=== PATIENT | female | born 1985 | race Caucasian/White ===

== ENCOUNTER 2019-11-30 20:53 | Emergency (ER) | payer BC, SELFPAY ==
--- NOTE | ~2019-11-30 | CT_ITS ---
EXAMINATION: CT abdomen pelvis w con DATE: 11/30/2019 23:46 INDICATION: Lower abdominal pain. Nausea. Diarrhea. TECHNIQUE: Computed tomography (CT) of the abdomen and pelvis was performed with 100 cc Omnipaque 350 intravenous contrast. Automated exposure control and iterative reconstruction technique were employe d. Exam dose: 1676.85 mGy-cm total exam DLP. COMPARISON: 08/31/2006 CT abdomen. FINDINGS: The lung bases are clear. Heart size is within upper limits of normal. No pericardial or pl eural effusion. Morbid obesity limits soft tissue and organ detail. The liver, spleen, pancreas, and adrenal glands and kidneys are unremarkable. No urinary tract calcul us or hydroureteronephrosis. There is an approximately 5 x 5.4 cm left ovarian hypodense lesion. Consider further evaluation with pelvic ultrasound examination. The uterus, adnexal areas and urinary bladder otherwise appear unremar kable. No bowel obstruction or intraperitoneal free air is evident. Diffuse idiopathic skeletal hyperostosis of the thoracic spine. There is degenerative disc disease an d lumbar area, particularly at L2-3 and L3-4. There is mild retrolisthesis at L4-5. IMPRESSION: 5 x 5.4 cm nonspecific left ovarian hypodense lesion; consider pelvic ultrasound examina tion for further evaluation. Dr. Coffey telephoned ER physician Dr. Galicia on 12/01/2019 at 0858 hours with the report of the nonspe cific left ovarian hypodense 5.4 cm lesion and recommendation for further evaluation by pelvic ultras ound examination. Reviewed, dictated and finalized at [facility]. Reviewed, dictated and finalized at [facility]. IMPRESSION: 5 x 5.4 cm nonspecific left ovarian hypodense lesion; consider pel rg ultrasound examination for further evaluation. Dr. Coffey telephoned ER physician Dr. Galicia on 12/01/2019 at 0858 hours with th e report of the nonspecific left ovarian hypodense 5.4 cm lesion and recommenda tion for further evaluation by pelvic ultrasound examination.
[2019-11-30 20:56] VITALS: BP 195/88; PULSE 92; RESP 20; TEMP 36.6; O2SAT 98
[2019-11-30 21:22] LABS: Basophils Percent Auto 0.6 % (0.2-1.2); Eosinophils Absolute Auto 0.1 K/mm3 (0-0.3); Eosinophils Percent Auto 1.4 % (0-4.4); Hematocrit 38.1 % (37.0-47.0); Hemoglobin 11.4 g/dL (12.0-15.0); Immature Granulocyte Absolute 0.01 K/mm3 (0.00-0.031); Immature Granulocyte Percent A 0.1 % (0-0.5); Lymphocytes Absolute Auto 2.12 K/mm3 (0.9-3.2); Lymphocytes Percent Auto 29.6 % (18.3-44.2); Mean Corpuscular HGB Conc 29.9 g/dl (32-36); Mean Corpuscular Hemoglobin 26.3 pg (26-34); Mean Platelet Volume 9.6 fl (7.4-10.4); Monocytes Absolute Auto 0.5 K/mm3 (0.1-0.6); Monocytes Percent Auto 6.8 % (2.6-8.5); Neutrophils Absolute Auto 4.4 K/mm3 (1.3-6.7); Neutrophils Percent Auto 61.5 % (45.5-73.1); Platelet Count Result 231 k/mm3 (150-375); Red Blood Count 4.33 M/mm3 (4.2-5.4); Red Cell Distribution Width 16.2 % (11.5-14.5); White Blood Count 7.2 K/mm3 (4.5-10.0)
[2019-11-30 21:33] LABS: Alanine Aminotransferase 54 U/L (4-35); Albumin Level 4.2 g/dL (3.5-5.1); Alkaline Phosphatase 58 U/L (38-126); Aspartate Amino Transferase 64 U/L (14-36); Bilirubin,Total 0.2 mg/dL (0.2-1.3); Blood Urea Nitrogen 12 mg/dL (7-17); Calcium 9.4 mg/dL (8.4-10.2); Carbon Dioxide 32 mmol/L (22-30); Chloride 102 mmol/L (98-107); Estimated CRCL calculation 217 ml/min; Estimated Glomerular Filt Rate > 60; Glucose 128 mg/dL (65-105); Lipase 119 U/L (23-300); Sodium 140 mmol/L (137-145)
[2019-11-30 22:29] LABS: Add Urine Microscopic? YES; Appearance Urine Clear (Clear); Bilirubin Urine Negative (Negative); Blood Urine Negative (Negative); Color Urine Yellow (Yellow); Glucose Urine UA Negative (Negative); Ketones Urine Negative (Negative); Leukocyte Esterase Ur Negative LEU/UL (Negative); Mucus Urine Rare /lpf; Nitrate Urine Negative (Negative); Protein Urine 1+ mg/dL (Negative); RBC Urine 0-2 /hpf (0-2); Specific Grav Ur 1.021 (1.001-1.035); Squamous Epithelial Cell Urine Few /hpf (Few); WBC Urine 0-3 /hpf
--- NOTE | 2019-11-30 22:42 | ED.ABDPAIN ---
HPI - Abdominal Pain General Chief Complaint: Abdominal Pain Stated Complaint: abd pain Time Seen by Provider: 11/30/19 22:10 Source: patient Mode of arrival: ambulatory Limitations: no limitations History of Present Illness HPI narrative: This patient is a 34 yo morbidly obese female who presents with c/o lower abdominal pain starting earlier today. She reports constant sharp pain. Her pain started initially in right lower abdomen and then she states it radiated to umbilicus and left lower abdomen. She states her pain also radiates to her lower back. Denies urinary symptoms but she states usually this pain occurs when she has a UTI. She denies fever or chills and she reports 1 loose stool today. Her pain seems to be worse with movement. She has not taken anything for pain. MD elicited complaint: abdominal pain Onset (ago): day(s) Related Data Home Medications Medication Instructions Recorded Confirmed furosemide [Lasix] 20 mg PO DAILY 07/09/19 07/09/19 gabapentin 400 mg PO TID 07/09/19 07/09/19 metoprolol tartrate [Lopressor] 50 mg PO DAILY 07/09/19 07/09/19 mirtazapine [Remeron] 15 mg PO HS 07/09/19 07/09/19 tramadol 100 mg BID 07/09/19 07/09/19 trazodone 100 mg PO HS 07/09/19 07/09/19 allopurinol 11/30/19 diclofenac sodium PO 11/30/19 ergocalciferol (vitamin D2) 11/30/19 lisinopril 11/30/19 omeprazole 11/30/19 quetiapine 11/30/19 trazodone 11/30/19 venlafaxine mg PO 11/30/19 venlafaxine mg PO 11/30/19 Allergies Allergy/AdvReac Type Severity Reaction Status Date / Time latex Allergy Mild Rash Verified 11/30/19 21:08 amoxicillin Allergy Unknown Hives / Verified 11/30/19 21:08 Red Face hydromorphone Allergy Unknown Nausea and Verified 11/30/19 21:08 Vomiting poison ernst extract Allergy Unknown Rash Verified 11/30/19 21:08 Review of Systems Review of Systems: All systems reviewed & are unremarkable except as noted in HPI and below Constitutional: Constitutional: Denies chills and Denies fever(s) Gastrointestinal: Gastrointestinal: Reports abdominal pain, Reports diarrhea, Reports nausea and Denies vomiting Genitourinary: Genitourinary: Denies nocturia, Denies dysuria, Denies flank pain and Denies urinary incontinence Musculoskeletal: Musculoskeletal: Reports back pain [facility] Past Medical History Medical History GERD (gastroesophageal reflux disease) Hypertension Sciatica Social History Social History Gender identity (if verbalized by the patient): Female Exam Const: General: no acute distress and alert Nutritional Appearance: obese morbidly obese Orientation/consciousness: patient oriented x3 HENMT: Head: normocephalic and atraumatic Mouth: Yes Normal oral and palatal mucosa present, Yes lip normal, Yes oropharynx normal and Yes moist mucous membranes Throat: posterior oropharynx normal and tonsils normal Eyes: Conjunctivae: conjunctivae normal Pupils: Equal, round and reactive pupils present EOM: EOMs intact bilaterally Chest: Chest palpation & inspection: normal inspection of the chest and no tenderness Resp: Effort & Inspection: normal respiratory effort and no retractions Auscultation: clear to auscultation bilaterally Cardio: Rate: regular rate Rhythm: regular rhythm Heart sounds: no murmurs GI: GI Palp: Yes Soft to palpation, Yes Tenderness to palpation present (GI) (bilateral lower abdomen and suprapubic), No Guarding due to palpation present (GI), No Rigid due to palpation and No Hernia present Back/Spine/Pelvis: Back: no CVA tenderness Skin: General skin exam: normal color Rashes: no rashes Neuro: General: patient oriented x3, moves all extremities and CN's II-XI intact bilaterally Extrem: General: normal to inspection Course Course Emergency Course: Patient presented with lower abdominal pain. Her pain improved with toradol. This appears unlikely to be ovarian torsion. I have
[2019-11-30] MEDS: ONDANSETRON INJ 4 MG/2 ML VIAL IV PUSH (22:57)
[2019-11-30] MEDS: KETOROLAC 30 MG/ML VIAL (*BKC) IV PUSH (22:57)
[2019-12-01 00:37] VITALS: BP 152/83; PULSE 78; RESP 16; O2SAT 97
== END 2019-12-01 00:41 | disposition home or self-care (01) ==
PROVIDERS: Emergency Provider General Practice
DX: N83.202 Unspecified ovarian cyst, left side (principal); K21.9 Gastro-esophageal reflux disease without esophagitis; I10 Essential (primary) hypertension
CPT/HCPCS: 36415; 74177; 80053; 81001; 81025; 83690; 85025; 96374; 96375; 99284; J1885; J2405; Q9967

== ENCOUNTER 2021-05-29 16:54 | Emergency (ER) | payer BC, SELFPAY ==
[2021-05-29 17:03] VITALS: BP 156/73; PULSE 78; RESP 18; TEMP 36.1; O2SAT 99
--- NOTE | 2021-05-29 17:09 | ED.URI ---
HPI - URI/Sore Throat General Chief Complaint: Upper Respiratory Infection Stated Complaint: sore throat/ear pain Time Seen by Provider: 05/29/21 17:10 Source: patient and RN notes reviewed Mode of arrival: ambulatory Limitations: no limitations History of Present Illness HPI Narrative: 36-year-old female presents to the [facility] with complaints of coughing at night, right ear pain for 2 weeks. Patient states she has tried [id number] products. Related Data Home Medications Medication Instructions Recorded Confirmed furosemide [Lasix] 20 mg PO DAILY 07/09/19 07/09/19 gabapentin 400 mg PO TID 07/09/19 07/09/19 metoprolol tartrate [Lopressor] 50 mg PO DAILY 07/09/19 07/09/19 mirtazapine [Remeron] 15 mg PO HS 07/09/19 07/09/19 tramadol 100 mg BID 07/09/19 07/09/19 trazodone 100 mg PO HS 07/09/19 07/09/19 allopurinol 11/30/19 diclofenac sodium PO 11/30/19 ergocalciferol (vitamin D2) 11/30/19 lisinopril 11/30/19 omeprazole 11/30/19 quetiapine 11/30/19 trazodone 11/30/19 venlafaxine mg PO 11/30/19 venlafaxine mg PO 11/30/19 Allergies Allergy/AdvReac Type Severity Reaction Status Date / Time latex Allergy Mild Rash Verified 05/29/21 17:14 amoxicillin Allergy Unknown Hives / Verified 05/29/21 17:14 Red Face hydromorphone Allergy Unknown Nausea and Verified 05/29/21 17:14 Vomiting poison ernst extract Allergy Unknown Rash Verified 05/29/21 17:14 Review of Systems Review of Systems: All systems reviewed & are unremarkable except as noted in HPI and below Constitutional: Constitutional: Reports no additional constitutional complaints Eyes: Eyes: Reports no additional eye complaints ENT: Reports as per HPI Comments: Ear pain Cardiovascular: Cardiovascular: Reports no additional cardiovascular complaints and Denies chest pain Respiratory: Respiratory: Reports as per HPI, Reports cough (Worse at night) and Denies dyspnea Gastrointestinal: Gastrointestinal: Denies abdominal pain, Denies nausea and Denies vomiting Musculoskeletal: Musculoskeletal: Reports no additional musculoskeletal complaints Integumentary/Breasts: Skin/Breast: Reports system reviewed and no additional complaints, except as docu Neurologic: Reports system reviewed and no additional complaints, except as documented Psychiatric: Psychiatric: Reports no additional psychiatric complaints Allergic/Immunologic: Allergic/Immunologic: Reports no additional allergic/immunologic complaints [facility] Past Medical History Medical History (Updated 05/30/21 @ 15:45 by Sindy Kaur) GERD (gastroesophageal reflux disease) Hypertension Sciatica Social History Social History Gender identity (if verbalized by the patient): Female Comments At the time of my signature, I reviewed and agree with the nursing past medical, surgical, social, and family history. There is no relevant family history pertinent to the patient complaint. Exam Const: General: healthy appearing, no acute distress and alert Nutritional Appearance: well nourished and obese morbidly obese Orientation/consciousness: patient oriented x3 Limitations: no limitations and altered mental status HENMT: Head: normal to inspection Ears: external ears normal, Abnormal EAC present erythema on the right, edema and EAC tenderness and TM abnormal with fluid behind the TM bilateral; not erythematous Mouth: Yes lip normal Eyes: Conjunctivae: conjunctivae normal Pupils: Equal, round and reactive pupils present Neck: Neck: normal visual inspection, no lymphadenopathy and no meningeal signs Chest: Chest palpation & inspection: normal inspection of the chest Resp: Effort & Inspection: normal respiratory effort Auscultation: clear to auscultation bilaterally Cardio: Rate: regular rate Rhythm: regular rhythm GI: GI Palp: Yes Soft to palpation and No Tenderness to palpation present (GI) : General: Yes no CVA tenderness
== END 2021-05-29 17:27 | disposition home or self-care (01) ==
PROVIDERS: Emergency Provider Nurse Practitioner; PCP Family Medicine
DX: R09.82 Postnasal drip (principal); S00.411A Abrasion of right ear, initial encounter; X58.XXXA Exposure to other specified factors, initial encounter; K21.9 Gastro-esophageal reflux disease without esophagitis; I10 Essential (primary) hypertension
CPT/HCPCS: 87081; 87880; 99213; G0463

== ENCOUNTER 2021-06-06 19:13 | Emergency (ER) | payer BC, SELFPAY ==
[2021-06-06 19:36] VITALS: BP 157/97; PULSE 77; RESP 14; TEMP 37.2; O2SAT 97
[2021-06-06 19:50] VITALS: BP 157/97; PULSE 77; RESP 20; TEMP 37.2; O2SAT 100
--- NOTE | 2021-06-06 21:04 | ED.EXTPRO ---
HPI - Extremity Problem General Chief complaint: Extremity Problem,Nontraumatic Stated complaint: pain and swelling to legs Time Seen by Provider: 06/06/21 20:57 Source: patient Mode of arrival: ambulatory Limitations: no limitations History of Present Illness HPI Narrative: Patient is a 36-year-old female complaining of bilateral extremity edema x1 week. Patient denies any calf pain. Patient denies any chest pain or shortness of breath. Patient denies any fever or chills. Related Data Home Medications Medication Instructions Recorded Confirmed furosemide [Lasix] 20 mg PO DAILY 07/09/19 07/09/19 gabapentin 400 mg PO TID 07/09/19 07/09/19 metoprolol tartrate [Lopressor] 50 mg PO DAILY 07/09/19 07/09/19 mirtazapine [Remeron] 15 mg PO HS 07/09/19 07/09/19 tramadol 100 mg BID 07/09/19 07/09/19 trazodone 100 mg PO HS 07/09/19 07/09/19 allopurinol 11/30/19 diclofenac sodium PO 11/30/19 ergocalciferol (vitamin D2) 11/30/19 lisinopril 11/30/19 omeprazole 11/30/19 quetiapine 11/30/19 trazodone 11/30/19 venlafaxine mg PO 11/30/19 venlafaxine mg PO 11/30/19 Allergies Allergy/AdvReac Type Severity Reaction Status Date / Time latex Allergy Mild Rash Verified 05/29/21 17:14 amoxicillin Allergy Unknown Hives / Verified 05/29/21 17:14 Red Face hydromorphone Allergy Unknown Nausea and Verified 05/29/21 17:14 Vomiting poison ernst extract Allergy Unknown Rash Verified 05/29/21 17:14 Review of Systems Review of Systems: All systems reviewed & are unremarkable except as noted in HPI and below Constitutional: Constitutional: Denies body ache(s), Denies chills, Denies excessive sweating, Denies fatigue, Denies fever(s), Denies headache(s), Denies lethargy, Denies malaise, Denies weakness and Denies weight loss Eyes: Eyes: Denies blurry vision, Denies change in vision and Denies loss of vision ENT: Denies dizziness, Denies ear discharge, Denies headache(s), Denies lip swelling, Denies epistaxis, Denies nasal congestion, Denies neck pain, Denies throat swelling and Denies tongue swelling Cardiovascular: Cardiovascular: Denies chest pain, Denies chest pain at rest, Denies chest pain with activity, Denies diaphoresis, Denies rapid heart rate, Denies edema, Denies irregular heart rhythm, Denies lightheadedness, Denies palpitations, Denies dyspnea and Denies dyspnea on exertion Respiratory: Respiratory: Denies chest congestion, Denies cough, Denies hemoptysis, Denies dyspnea and Denies dyspnea on exertion Gastrointestinal: Gastrointestinal: Denies abdominal pain, Denies melena, Denies hematochezia, Denies diarrhea, Denies nausea, Denies vomiting and Denies hematemesis Musculoskeletal: Musculoskeletal: Denies abnormal gait, Denies deformity, Denies joint swelling, Denies limited range of motion, Denies neck pain and Denies numbness Neurologic: Denies Abnormal speech present, Denies abnormal gait, Denies confusion, Denies dizziness, Denies headache(s), Denies focal weakness, Denies loss of vision, Denies numbness, Denies Other visual disturbances, Denies Sensory deficit (Neuro) and Denies weakness Psychiatric: Psychiatric: Denies confusion, Denies depression, Denies auditory hallucinations, Denies homicidal ideation and Denies suicidal ideation Endocrine: Endocrine: Denies cold intolerance, Denies excessive sweating, Denies fatigue, Denies heat intolerance and Denies palpitations Hematologic/Lymphatic: Hematologic/Lymphatic: Denies easy bleeding and Denies easy bruising Allergic/Immunologic: Allergic/Immunologic: Denies lip swelling, Denies throat swelling and Denies tongue swelling PMFSH Past Medical History Medical History (Updated 06/06/21 @ 22:52 by Skyler Garcia MD) GERD (gastroesophageal reflux disease) Hypertension Sciatica Social History Social History Gender identity (if verbalized by the patient): Female Exam Const: General: cooperative, c
[2021-06-06 21:27] LABS: Basophils Percent Auto 0.4 % (0.2-1.2); Eosinophils Absolute Auto 0.1 K/mm3 (0-0.3); Eosinophils Percent Auto 1.8 % (0-4.4); Hematocrit 38.2 % (37.0-47.0); Hemoglobin 12.1 g/dL (12.0-15.0); Immature Granulocyte Absolute 0.05 K/mm3 (0.00-0.031); Immature Granulocyte Percent A 0.6 % (0-0.5); Lymphocytes Absolute Auto 1.99 K/mm3 (0.9-3.2); Lymphocytes Percent Auto 25.1 % (18.3-44.2); Mean Corpuscular HGB Conc 31.7 g/dl (32-36); Mean Corpuscular Hemoglobin 30.4 pg (26-34); Mean Platelet Volume 8.9 fl (7.4-10.4); Monocytes Absolute Auto 0.5 K/mm3 (0.1-0.6); Monocytes Percent Auto 6.3 % (2.6-8.5); Neutrophils Absolute Auto 5.2 K/mm3 (1.3-6.7); Neutrophils Percent Auto 65.8 % (45.5-73.1); Platelet Count Result 199 k/mm3 (150-375); Red Blood Count 3.98 M/mm3 (4.2-5.4); Red Cell Distribution Width 13.7 % (11.5-14.5); White Blood Count 7.9 K/mm3 (4.5-10.0)
[2021-06-06 22:26] LABS: Alanine Aminotransferase 46 U/L (4-35); Albumin Level 4.3 g/dL (3.5-5.1); Alkaline Phosphatase 57 U/L (38-126); Anion Gap 8 mmol/L (8-16); Aspartate Amino Transferase 45 U/L (14-36); Bilirubin,Total 0.3 mg/dL (0.2-1.3); Blood Urea Nitrogen 14 mg/dL (7-17); Calcium 9.6 mg/dL (8.4-10.2); Carbon Dioxide 32 mmol/L (22-30); Chloride 100 mmol/L (98-107); Estimated CRCL calculation 214 ml/min; Estimated Glomerular Filt Rate > 60; Glucose 100 mg/dL (65-110); Potassium 3.7 mmol/L (3.4-5.0); Sodium 140 mmol/L (137-145)
[2021-06-06 22:34] LABS: NT Pro B Type Natriuretic Pept 114 pg/mL (5-100)
== END 2021-06-06 23:00 | disposition home or self-care (01) ==
PROVIDERS: Emergency Provider Emergency Medicine
DX: R60.0 Localized edema (principal); I10 Essential (primary) hypertension; K21.9 Gastro-esophageal reflux disease without esophagitis
CPT/HCPCS: 36415; 80053; 83880; 85025; 99283

== ENCOUNTER 2021-10-31 19:32 | Emergency (ER) | payer BC, SELFPAY ==
--- NOTE | ~2021-10-31 | XR_ITS ---
EXAMINATION: XR knee RT min 4V EXAM DATE: 10/31/2021 19:52 INDICATION: Right knee pain. TECHNIQUE: Right knee frontal, crosstable lateral, orthogonal oblique projections for interpretation . There is no prior study for comparison. FINDINGS: No evidence osteochondral defect or joint body in the right knee joint. There is mild tri compartmental primary osteoarthritis. No joint effusion. There are no acute fractures identified. No radiopaque foreign bodies identified. Evidence of edema within the subcutaneous fat. IMPRESSION: Mild right knee osteoarthritis. Subcutaneous edema. Reviewed, dictated and finalized at location .
[2021-10-31 19:40] VITALS: BP 153/73; PULSE 85; RESP 20; TEMP 37.6; O2SAT 98
--- NOTE | 2021-10-31 19:41 | ED.LOWEXIN ---
HPI - Extremity Injury (Lower) General Chief Complaint: Extremity Injury, Lower Stated Complaint: Right Knee Pain Time Seen by Provider: 10/31/21 19:42 Source: patient, RN notes reviewed and old records reviewed Mode of arrival: ambulatory Limitations: no limitations History of Present Illness HPI Narrative: 36-year-old female presents to the [facility] with right knee pain for 1 week. States that she tripped landing on her knee. Still having discomfort and swelling. States she is taken ibuprofen for pain. Related Data Home Medications Medication Instructions Recorded Confirmed furosemide [Lasix] 20 mg PO DAILY 07/09/19 07/09/19 gabapentin 400 mg PO TID 07/09/19 07/09/19 metoprolol tartrate [Lopressor] 50 mg PO DAILY 07/09/19 07/09/19 allopurinol 11/30/19 diclofenac sodium PO 11/30/19 ergocalciferol (vitamin D2) 11/30/19 lisinopril 11/30/19 omeprazole 11/30/19 quetiapine 11/30/19 Wellbutrin 10/31/21 Allergies Allergy/AdvReac Type Severity Reaction Status Date / Time latex Allergy Mild Rash Verified 05/29/21 17:14 amoxicillin Allergy Unknown Hives / Verified 05/29/21 17:14 Red Face hydromorphone Allergy Unknown Nausea and Verified 05/29/21 17:14 Vomiting poison ernst extract Allergy Unknown Rash Verified 05/29/21 17:14 Review of Systems Review of Systems: All systems reviewed & are unremarkable except as noted in HPI and below Constitutional: Constitutional: Reports no additional constitutional complaints Eyes: Eyes: Reports no additional eye complaints ENT: Reports system reviewed and no additional complaints, except as documented Cardiovascular: Cardiovascular: Reports no additional cardiovascular complaints Respiratory: Respiratory: Reports no additional respiratory complaints Gastrointestinal: Gastrointestinal: Reports no additional gastrointestinal complaints Musculoskeletal: Musculoskeletal: Reports as per HPI, Reports arthralgias (Medial right knee) and Reports joint swelling Integumentary/Breasts: Skin/Breast: Reports system reviewed and no additional complaints, except as docu Neurologic: Reports system reviewed and no additional complaints, except as documented Psychiatric: Psychiatric: Reports no additional psychiatric complaints Allergic/Immunologic: Allergic/Immunologic: Reports no additional allergic/immunologic complaints PMFSH Past Medical History Medical History GERD (gastroesophageal reflux disease) Hypertension Sciatica Social History Social History Gender identity (if verbalized by the patient): Female Comments At the time of my signature, I reviewed and agree with the nursing past medical, surgical, social, and family history. There is no relevant family history pertinent to the patient complaint. Exam Const: General: healthy appearing, no acute distress and alert Nutritional Appearance: well nourished and obese morbidly obese Orientation/consciousness: patient oriented x3 Limitations: no limitations HENMT: Head: normal to inspection Eyes: Pupils: Equal, round and reactive pupils present Neck: Neck: normal visual inspection, no lymphadenopathy and no meningeal signs Chest: Chest palpation & inspection: normal inspection of the chest Resp: Effort & Inspection: normal respiratory effort Auscultation: clear to auscultation bilaterally Cardio: Rate: regular rate Rhythm: regular rhythm : General: Yes no CVA tenderness Skin: General skin exam: normal color Rashes: no rashes Neuro: General: patient oriented x3, moves all extremities, no meningeal signs and no focal motor deficits Cranial nerves: Yes Equal, round and reactive pupils present Speech: normal speech Gait exam (Neuro): Normal gait present Extrem: General: capillary refill normal and normal exam except as noted Right lower extremity: normal capillary refill and knee (Sma
== END 2021-10-31 20:10 | disposition home or self-care (01) ==
PROVIDERS: Emergency Provider Nurse Practitioner
DX: S80.01XA Contusion of right knee, initial encounter (principal); W01.0XXA Fall on same level from slipping, tripping and stumbling without subsequent striking against object, initial encounter; M17.11 Unilateral primary osteoarthritis, right knee; K21.9 Gastro-esophageal reflux disease without esophagitis; I10 Essential (primary) hypertension
CPT/HCPCS: 73564; 99213; G0463

== ENCOUNTER → 2022-01-27 17:21 | Outpatient (CLI) | payer BC, SELFPAY ==
--- NOTE | ~2022-01-27 | XR_ITS ---
XR lumbar spine 2-3V DATE: 01/27/2022 17:45 INDICATION: Mid to low back pain for years TECHNIQUE: AP, lateral, coned lateral lumbosacral views COMPARISON: 08/04/2007 lumbar spine 01/20/2016 CT abdomen pelvis FINDINGS: The lumbar pedicles are intact. No fracture or bone destruction is evident. There is normal alignment of the lumbar spine. No spondylolisthesis. There is moderate degenerative disc disease at L2-3, L3-4 and mild degenerative disc disease at L4-5. The sacroiliac joints appear normal. IMPRESSION: Multilevel mild to moderate degenerative disc disease Reviewed, dictated and finalized at [facility].
== END ==
PROVIDERS: PCP Physician Assistant; Visit Provider Physician Assistant
DX: M54.50 Low back pain, unspecified (principal); M51.36 Other intervertebral disc degeneration, lumbar region
CPT/HCPCS: 72100

== ENCOUNTER 2022-08-01 19:25 | Emergency (ER) | payer BC, SELFPAY ==
--- NOTE | ~2022-08-01 | CT_ITS ---
EXAMINATION: CT abdomen pelvis w con DATE: 08/02/2022 01:30 INDICATION: Right lower quadrant abdominal pain TECHNIQUE: Computed tomography (CT) of the abdomen and pelvis was performed with 100 mL Omnipaque-350 intravenous contrast. Automated exposure control and iterative reconstruction technique were employe d. The dose-length product was 1760.02 mGy-cm. COMPARISON: 11/30/2019 FINDINGS: Lung bases are clear. Heart size is normal. No pericardial or pleural effusion. Liver, gallbladder, p ancreas and bilateral kidneys and right adrenal gland are normal. 1.6 cm left adrenal nodule, most li nish an adenoma given the relative mild increase in size since 01/20/2016 at which time the nodule rusty ured 1.2 cm. Splenomegaly measuring 16 cm in length which could be due to body habitus. Nonspecific i nflammatory stranding in the right lower quadrant situated along side the sigmoid colon in the right ovary and the tip of the otherwise normal-appearing appendix. No bowel obstruction. Bladder and uteru s are unremarkable. No abscess, free intraperitoneal gas or fluid. No pathologically enlarged abdomin al or pelvic lymphadenopathy. Moderate lumbar and lower thoracic spondylosis. IMPRESSION: 1. Inflammatory stranding in the right lower quadrant. Differential would include sigmoid epiploic ap pendagitis, tip appendicitis or ruptured ovarian cyst. Reviewed, dictated and finalized at [facility]. [employer] IMPRESSION: 1. Inflammatory stranding in the right lower quadrant. Differential would inclu de sigmoid epiploic appendagitis, tip appendicitis or ruptured ovarian cyst.
[2022-08-01 20:16] VITALS: BP 172/88; PULSE 79; RESP 20; TEMP 36.4; O2SAT 98
[2022-08-01 20:32] LABS: Basophils Percent Auto 0.3 % (0.2-1.2); Eosinophils Absolute Auto 0.1 K/mm3 (0-0.3); Eosinophils Percent Auto 1.4 % (0-4.4); Hematocrit 41.3 % (37.0-47.0); Hemoglobin 13.1 g/dL (12.0-15.0); Immature Granulocyte Absolute 0.02 K/mm3 (0.00-0.031); Immature Granulocyte Percent A 0.3 % (0-0.5); Lymphocytes Absolute Auto 2.45 K/mm3 (0.9-3.2); Lymphocytes Percent Auto 37.9 % (18.3-44.2); Mean Corpuscular HGB Conc 31.7 g/dl (32-36); Mean Corpuscular Hemoglobin 29.4 pg (26-34); Mean Corpuscular Volume 92.8 fl (80-100); Mean Platelet Volume 8.3 fl (7.4-10.4); Monocytes Absolute Auto 0.5 K/mm3 (0.1-0.6); Monocytes Percent Auto 8.2 % (2.6-8.5); Neutrophils Absolute Auto 3.4 K/mm3 (1.3-6.7); Neutrophils Percent Auto 51.9 % (45.5-73.1); Platelet Count Result 171 k/mm3 (150-375); Red Blood Count 4.45 M/mm3 (4.2-5.4); Red Cell Distribution Width 13.9 % (11.5-14.5); White Blood Count 6.5 K/mm3 (4.5-10.0)
[2022-08-01 20:46] LABS: Alanine Aminotransferase 57 U/L (6-35); Albumin Level 4.2 g/dL (3.5-5.1); Alkaline Phosphatase 49 U/L (38-126); Anion Gap 7 mmol/L (8-16); Aspartate Amino Transferase 83 U/L (14-36); Bilirubin,Total 0.5 mg/dL (0.2-1.3); Blood Urea Nitrogen 11 mg/dL (7-17); Calcium 8.8 mg/dL (8.4-10.2); Carbon Dioxide 31 mmol/L (22-30); Chloride 98 mmol/L (98-107); Estimated CRCL calculation 213 ml/min; Estimated Glomerular Filt Rate > 60; Glucose 94 mg/dL (65-110); Lipase 129 U/L (23-300); Sodium 136 mmol/L (137-145)
[2022-08-01 22:41] LABS: Add Urine Microscopic? YES; Appearance Urine Clear (Clear); Bilirubin Urine Negative (Negative); Blood Urine Trace-Intact (Negative); Color Urine Light Yellow (Yellow); Glucose Urine UA Negative (Negative); Ketones Urine Negative (Negative); Leukocyte Esterase Ur Negative LEU/UL (Negative); Nitrate Urine Negative (Negative); Protein Urine Negative (Negative); Specific Grav Ur <= 1.005 (1.001-1.035); Urobilinogen Urine 0.2 mg/dL (<2.0); pH Urine 6.5 (5.0-9.0)
[2022-08-01 22:44] LABS: Bacteria Urine Trace /hpf; Mucus Urine Rare /lpf; RBC Urine 0-2 /hpf (0-2); Squamous Epithelial Cell Urine Few /hpf (Few); WBC Urine 0-3 /hpf
--- NOTE | 2022-08-02 00:21 | ED.ABDPAIN ---
HPI - Abdominal Pain General Chief Complaint: Abdominal Pain Stated Complaint: Abdominal pain, RLQ Time Seen by Provider: 08/01/22 22:18 History of Present Illness HPI narrative: 37-year-old female presented emergency room for evaluation of right lower quadrant abdominal pain has been present for 1 week. Patient states pain is just similar to when she had an ovarian cyst. No radiating pain. Patient states that she has been taking Tylenol, ibuprofen and tried 150 mg of oral THC with no relief of symptoms. Patient also endorses a decreased appetite. Denies nausea or vomiting. Last bowel movement was regular at 6:00. Denies fevers Related Data Home Medications Medication Instructions Recorded Confirmed furosemide 20 mg tablet (Lasix) 20 mg PO DAILY 07/09/19 07/09/19 gabapentin 400 mg capsule 400 mg PO TID 07/09/19 07/09/19 metoprolol tartrate 50 mg tablet 50 mg PO DAILY 07/09/19 07/09/19 (Lopressor) allopurinol 300 mg tablet 11/30/19 diclofenac sodium 75 mg PO 11/30/19 tablet,delayed release ergocalciferol (vitamin D2) 1,250 11/30/19 mcg (50,000 unit) capsule lisinopril 10 mg tablet 11/30/19 omeprazole 20 mg capsule,delayed 11/30/19 release quetiapine 100 mg tablet 11/30/19 Wellbutrin 10/31/21 Allergies Allergy/AdvReac Type Severity Reaction Status Date / Time latex Allergy Mild Rash Verified 08/01/22 19:27 amoxicillin Allergy Unknown Hives / Verified 08/01/22 19:27 Red Face hydromorphone Allergy Unknown Nausea and Verified 08/01/22 19:27 Vomiting poison ernst extract Allergy Unknown Rash Verified 08/01/22 19:27 Review of Systems Review of Systems: CONSTITUTIONAL: Denies fever, chills, or sweats. EYES: Denies visual changes, redness, or discharge. ENT: Denies rhinorrhea, congestion, sore throat, or otalgia. CARDIOVASCULAR: Denies chest pain, palpitations, or edema. RESPIRATORY: Denies cough or dyspnea. GASTROINTESTINAL: Reports abdominal pain GENITOURINARY: Denies dysuria or hematuria. SKIN: Denies rash or itching. MUSCULOSKELETAL: Denies back pain, joint pain, or myalgia. NEUROLOGIC: Denies headache, numbness, dizziness, or weakness. PSYCHIATRIC: Denies anxiety or depression. PMFSH Past Medical History Medical History (Updated 08/02/22 @ 02:37 by Giuseppe Steward APRN) GERD (gastroesophageal reflux disease) Hypertension Sciatica Social History Social History Gender identity (if verbalized by the patient): Female Exam Narrative: GENERAL: Well-appearing, well-nourished, no physical limitations, and in no acute distress. HEAD: Normocephalic, atraumatic. EYES: Conjunctivae normal, PERRLA and EOMI. CHEST: Clear to auscultation. No respiratory distress. No wheezes rales or rhonchi. HEART: Regular rate and rhythm. No murmur heard. Normal peripheral pulses. ABDOMEN: Soft, right lower quadrant tenderness, nondistended, normal active bowel sounds. BACK: No CVA tenderness; EXTREMITIES: Normal range of motion. No edema. No clubbing or cyanosis SKIN: Warm, dry, no rash. No noted wounds NEURO: No focal deficits. Alert and oriented x3. MAEW. CN's II-XI intact bilaterally, normal gait PSYCH: Cooperative. Normal mood and affect. Course Vital Signs Vital signs: Vital Signs Temperature 36.4 C 08/01/22 20:16 Pulse Rate 79 08/01/22 20:16 Respiratory Rate 20 08/01/22 20:16 Blood Pressure 172/88 H 08/01/22 20:16 Pulse Oximetry 98 08/01/22 20:16 Oxygen Delivery Room Air 08/01/22 20:16 Temperature 36.4 C 08/01/22 20:16 Pulse Rate 79 08/01/22 20:16 Respiratory Rate 20 08/01/22 20:16 Blood Pressure 172/88 H 08/01/22 20:16 Pulse Oximetry 98 08/01/22 20:16 Oxygen Delivery Room Air 08/01/22 20:16 MDM - Abdominal Pain MDM Narrative Medical decision making narrative: 37-year-old female presented with right lower quadrant pain for 1 week. Patient states that pain crescendoed and is beg
[2022-08-02] MEDS: SODIUM CHLORIDE 0.9% IV 1,000 ML 999 ML IV CONT (00:31)
[2022-08-02 00:43] LABS: Pregnancy On Board Control Positive; Urine Pregnancy Test Negative
[2022-08-02 02:47] VITALS: PULSE 87; RESP 16; O2SAT 96
== END 2022-08-02 02:48 | disposition home or self-care (01) ==
PROVIDERS: Emergency Medicine; Emergency Provider Nurse Practitioner Family; PCP Physician Assistant
DX: K63.89 Other specified diseases of intestine (principal); I10 Essential (primary) hypertension; K21.9 Gastro-esophageal reflux disease without esophagitis
CPT/HCPCS: 36415; 74177; 80053; 81001; 81025; 83690; 85025; 96360; 99284; J7030; Q9967

== ENCOUNTER 2025-05-28 14:49 | Emergency (ER) | payer BC, MEDICAID, SELFPAY ==
[2025-05-28 15:13] VITALS: BP 139/70; PULSE 55; RESP 16; TEMP 36.5; O2SAT 98
--- NOTE | 2025-05-28 15:47 | ED_ITS ---
HPI - Back Pain/Injury General Chief Complaint: Back Pain/Injury Stated Complaint: back,hip and leg pain Time Seen by Provider: 05/28/25 15:30 Source: patient and RN notes reviewed Mode of arrival: ambulatory Limitations: no limitations History of Present Illness HPI Narrative: 40-year-old female presents [facility] complaining left lower back pain/hip pain for approximately 1-2 weeks. Patient says she has a history of sciatica back, she denies any back surgeries. Patient denies any falls or any injuries. Patient reports worsening left lower back pain/hip pain has causing shooting pains up to her left side of her neck down to her left like. Reports the shooting pains occur with changes of movements especially while standing. Patient has been doing muscle relaxers, [id number] pain medication, ice, lidocaine patches, stretches with some relief. Patient says the pain is getting worse. Denies any saddle anesthesia, leg weakness, arm weakness, loss of bowel or bladder function, fevers, back, chills, nausea, vomiting, chest pain, shortness of breath, urinary symptoms, in her symptoms. Related Data Home Medications ?Medication ?Instructions ?Recorded ?Confirmed ?Last Taken ?Type allopurinol 300 mg tablet 11/30/19 05/29/21 History ergocalciferol (vitamin D2) 1,250 11/30/19 05/29/21 History mcg (50,000 unit) capsule omeprazole 20 mg capsule,delayed 11/30/19 05/29/21 H istory release quetiapine 100 mg tablet 11/30/19 05/29/21 History calcium 315 mg (as 1 tablet PO DAILY 05/28/25 Unknown History citrate)-vitamin D3 5 mcg (200 unit) tablet cholecalciferol (vitamin D3) 50 05/28/25 Unknown His tory mcg (2,000 unit) capsule (D3-2000) duloxetine 40 mg capsule,delayed mg PO 05/28/25 Unkno wn History release ferrous sulfate 325 mg (65 mg mg 05/28/25 Unknown His tory iron) tablet (FeroSul) methocarbamol 500 mg tablet mg 05/28/25 Unknown Histo ry metoprolol succinate 100 mg mg PO 05/28/25 Unknown Hi story tablet,extended release 24 hr multivitamin tablet 05/28/25 Unknown His tory ondansetron 4 mg disintegrating mg 05/28/25 Unknown H istory tablet quetiapine 300 mg tablet mg 05/28/25 Unknown History Allergies Allergy/AdvReac Type Severity Reaction Status Date / Time latex Allergy Mild Rash Verified 05/28/25 15:30 amoxicillin Allergy Unknown Hives / Verified 05/28/25 15:30 Red Face hydromorphone Allergy Unknown Nausea and Verified 05/28/25 15:30 Vomiting poison ernst extract Allergy Unknown Rash Verified 05/28/25 15:30 Review of Systems Review of Systems: CONSTITUTIONAL: Denies fever, chills, or sweats. EYES: Denies visual changes, redness, or discharge. ENT: Denies rhinorrhea, congestion, sore throat, or otalgia. CARDIOVASCULAR: Denies chest pain, palpitations, or edema. RESPIRATORY: Denies cough or dyspnea. GASTROINTESTINAL: Denies abdominal pain, nausea, vomiting, or diarrhea. GENITOURINARY: Denies dysuria or hematuria. SKIN: Denies rash or itching. MUSCULOSKELETAL: Positive for back pain. joint pain, or myalgia. NEUROLOGIC: Denies headache, numbness, or weakness. PSYCHIATRIC: Denies anxiety or depression. All other systems reviewed are negative, except as documented in HPI. [facility] Past Medical History Medical History Sciatica GERD (gastroesophageal reflux disease) Hypertension Social History Social History Gender identity (if verbalized by the patient): Female Comments At the time of my signature, I reviewed and agree with the nursing past medical, surgical, social, and family history. There is no relevant family history pertinent to the patient complaint. Exam Narrative: GENERAL: This is a well-nourished, well-developed adult, in no apparent distress. They are non ill-appearing, nontoxic appearing. Patient is morbidly obese. Physical exam limited due to large body habitus. HEAD: normocephalic, atraumatic. EYES: Sclera clear/white. Conjunctiva normal. Vision is grossly intact. Extraocular movements intact EARS: External ears normal, NOSE: External nose normal THROAT: Mucous membranes moist, NECK: Neck supple, non-tender without lymphadenopathy, masses or thyromegaly. CARDIOVASCULAR: Regular rate and rhythm RESPIRATORY: Respiratory rate normal, respiratory effort nonlabored, no respiratory distress SKIN: warm, Dry, intact with no suspicious lesions or rash, good texture and turgor. NEURO: awake, alert, and oriented to person, place and time. There were no obvious focal neurologic abnormalities. EXTREMITIES: No joint tenderness, effusion, or edema noted. BACK: Lumbar tenderness to palpation. No crepitus or step-offs. No thoracic or cervical point tenderness, crepitus, or step-offs. No CVA tenderness. Course Course Emergency Course: Portions of this record may have been created with voice recognition software Level of Care: Express Care Visit Vital Signs Vital signs: Vital Signs Temperature 97.7 F 05/28/25 15:13 Pulse Rate 55 L 05/28/25 15:13 Respiratory Rate 16 05/28/25 15:13 Blood Pressure 139/70 05/28/25 15:13 Pulse Oximetry 98 05/28/25 15:13 Oxygen Delivery Room Air 05/28/25 15:13 Temperature 97.7 F 05/28/25 15:13 Pulse Rate 55 L 05/28/25 15:13 Respiratory Rate 16 05/28/25 15:13 Blood Pressure 139/70 05/28/25 15:13 Pulse Oximetry 98 05/28/25 15:13 Oxygen Delivery Room Air 05/28/25 15:13 Reviewed MDM - Back Pain/Injury MDM Narrative Medical decision making narrative: Patient's symptoms likely related to sciatica. No cauda equina symptoms. Will try a course of prednisone. Encouraged patient follow-up with PCP if she may be see a pain specialist or back specialist. Discussed physical exam findings. Advised supportive measures and signs/symptoms to go to the ER. Pt is appropriate for outpt treatment and f/u. Differential Diagnosis Differential diagnosis: Likely lumbar radiculopathy, sciatica, strain of lumbar region and discitis Critical Care Time Critical Care Time Critical Care Time: No Discharge Plan Discharge Clinical Impression: Sciatica Qualifiers: Laterality: left Qualified Code(s): M54.32 - Sciatica, left side Patient Disposition: Home Condition: Stable Instructions: Sciatica (ED) Additional Instructions: Continue to take your medications as prescribed for pain. Take the prednisone as directed. You may take ibuprofen 600 mg to 800 mg every 6-8 hours. Do not exceed more than 800 mg of ibuprofen per dose. Do not exceed more than 3200 mg ibuprofen in a day. You may take up to 1000 mg Tylenol every 6-8 hours. Do not exceed 1000 mg per dose, do exceed more than 4000 mg of Tylenol in a day. Please follow-up with your primary care provider if pain persist Rest. Avoid pushing, pulling, lifting --running or excessive walking-- or anything that worsens the symptoms You may try stretching your lower back or doing spinal decompression to help with symptoms. Go to the emergency department if you develop any numbness or tingling to your groin, weakness in your legs, or any loss of bowel or bladder function. Patient Language: Yakut Prescriptions: New prednisone 20 mg tablet 40 mg PO DAILY 5 Days Qty: 10 0RF No Action multivitamin Tablet methocarbamol 500 mg tablet quetiapine 300 mg tablet ferrous sulfate [FeroSul] 325 mg (65 mg iron) tablet ondansetron 4 mg tablet,disintegrating cholecalciferol (vitamin D3) [D3-2000] 50 mcg (2,000 unit) capsule duloxetine 40 mg capsule,delayed release(DR/EC) PO metoprolol succinate 100 mg tablet extended release 24 hr PO calcium citrate-vitamin D3 315 mg-5 mcg (200 unit) tablet 1 tablet PO DAILY quetiapine 100 mg tablet omeprazole 20 mg capsule,delayed release(DR/EC) allopurinol 300 mg tablet ergocalciferol (vitamin D2) 1,250 mcg (50,000 unit) capsule Follow-up/Referrals: UNKNOWN,DOCTOR [Primary Care Provider] Time of Disposition: 15:42
== END 2025-05-28 16:05 | disposition home or self-care (01) ==
DX: M54.32 Sciatica, left side (principal); I10 Essential (primary) hypertension; K21.9 Gastro-esophageal reflux disease without esophagitis
CPT/HCPCS: 99213; G0463

== ENCOUNTER → 2025-06-18 11:59 | Outpatient (CLI) | payer BC, MEDICAID, SELFPAY ==
--- NOTE | ~2025-06-18 | XR_ITS ---
XR lumbar spine 2-3V Indication: LT side sciatica pain, 1x month Comparison: None Findings: The vertebral heights are intact. No fracture or subluxation. Moderate loss of disc height throughout Soft tissues unremarkable Impression: No acute abnormality. Reviewed, dictated and finalized at location P. [facility] C[facility] PROGRAM DIRECTOR Impression: No acute abnormality.
== END ==
LOC: EXPCRAD 12:03
DX: Z12.31 Encounter for screening mammogram for malignant neoplasm of breast (principal); R29.890 Loss of height
CPT/HCPCS: 72100